=== PATIENT | male | born 1965 | race Caucasian/White ===

== ENCOUNTER → 2016-11-05 | Day surgery (SDC) | payer OTHER ==
[2016-11-05 12:27] LABS: HCT 43.1 % (42.0-52.0); HGB 15.5 g/dl (13.2-18.0); MCH 31.4 pg (25.0-31.0); MCV 87.4 fL (78.0-100.0); MPV 8.4 fL (6.0-9.5); RBC 4.93 M/uL (4.70-6.00); RDW 12.4 % (11.5-14.0); WBC 7.2 K/uL (4.0-10.5)
[2016-11-05 12:56] LABS: ALBUMIN 4.7 g/dL (3.5-5.0); BILIRUBIN - TOTAL 0.6 mg/dL (0.1-1.0); CREATININE 0.9 mg/dL (0.7-1.2); GLOBULIN (CALCULATION) 3.2 g/dL (2.2-4.2); POTASSIUM 3.8 mmol/L (3.5-5.1); TOTAL PROTEIN 7.9 g/dL (6.4-8.3)
== END | disposition home or self-care (01) ==
LOC: FAS 11:57
PROVIDERS: Surgery
DX: K81.1 Chronic cholecystitis (principal); K76.0 Fatty (change of) liver, not elsewhere classified; K21.9 Gastro-esophageal reflux disease without esophagitis; I10 Essential (primary) hypertension; E78.00 Pure hypercholesterolemia, unspecified; J30.9 Allergic rhinitis, unspecified; M19.90 Unspecified osteoarthritis, unspecified site; Z98.52 Vasectomy status; Z82.61 Family history of arthritis; Z83.42 Family history of familial hypercholesterolemia; Z82.49 Family history of ischemic heart disease and other diseases of the circulatory system; Z83.3 Family history of diabetes mellitus; Z87.891 Personal history of nicotine dependence; Z79.899 Other long term (current) drug therapy
CPT/HCPCS: 36415; 74300; 80053; 88304; 88307; 88313; J1170; J2405; J2704; J2710; J3010; Q9962

== ENCOUNTER 2021-08-03 17:58 | Emergency (ER) | payer OTHER ==
[2021-08-03] MEDS ORDERED: CEPHALEXIN500 MG PO (21:36)
== END 2021-08-03 21:46 | disposition home or self-care (01) ==
LOC: FER 17:58
DX: S61.210A Laceration without foreign body of right index finger without damage to nail, initial encounter (principal); Z23 Encounter for immunization; W26.0XXA Contact with knife, initial encounter; Y92.009 Unspecified place in unspecified non-institutional (private) residence as the place of occurrence of the external cause
CPT/HCPCS: 90471; 90715